=== PATIENT | female | born 1975 | race Two or more races ===

== ENCOUNTER 2019-05-03 21:49 | Emergency (ER) | payer SELFPAY ==
[~2019-05-03] VITALS: Ht 162.6 cm; Wt 49.9 kg
[2019-05-03] MEDS ORDERED: ONDANSETRON HCL INJ 2MG/ML 2ML 2 MG/ML VIAL IV STA (21:59)
[2019-05-03] MEDS ORDERED: MECLIZINE HCL 12.5 MG TAB PO ONE (22:00)
[2019-05-03] MEDS ORDERED: ONDANSETRON HCL INJ 2MG/ML 2ML 2 MG/ML VIAL ONE (22:25)
[2019-05-03] MEDS ORDERED: MECLIZINE HCL 12.5 MG TAB ONE (22:25)
[2019-05-03] MEDS ORDERED: MECLIZINE HCL12.5 MG PO (22:43)
[2019-05-03] MEDS ORDERED: ZOFRAN4 MG SL (22:46)
[2019-05-03 22:58] VITALS: BP 127/79
== END 2019-05-03 23:02 | disposition home or self-care (01) ==
LOC: FSED 21:49
DX: H81.11 Benign paroxysmal vertigo, right ear (principal)
CPT/HCPCS: 99283; J2405; J8597